=== PATIENT | male | born 1965 | race Hispanic/Latino ===

== ENCOUNTER 2021-05-08 11:40 | Day surgery (SDC) | payer BC ==
[2021-05-07 12:39] LABS: BASOPHILS % (AUTO) 0.8 % (0.0-5.0); EOSINOPHILS % (AUTO) 4.6 % (0.0-8.0); HEMATOCRIT 44.8 % (42-54); LYMPHOCYTES % (AUTO) 20.5 % (21.0-51.0); MEAN CORPUSCULAR HEMOGLOBIN 30.1 pg (27.0-33.0); MEAN CORPUSCULAR HGB CONC 32.8 g/dL (32.0-36.0); MEAN CORPUSCULAR VOLUME 91.8 fL (79-99); MONOCYTES % (AUTO) 10.6 % (3.0-13.0); NEUTROPHILS % (AUTO) 63.1 % (40.0-77.0); PLATELET COUNT (AUTO) 259 K/uL (130-400); RED BLOOD CELL COUNT(AUTO) 4.88 MIL/uL (4.50-6.20); WHITE BLOOD COUNT (AUTO) 9.7 K/uL (4.8-10.8)
[2021-05-07 12:42] LABS: APPEARANCE,URINE Clear (CLEAR); BILIRUBIN,URINE Negative (NEGATIVE); COLOR,URINE Yellow (YELLOW); GLUCOSE, URINE (UA) Negative (NEGATIVE); KETONES,URINE Negative (NEGATIVE); LEUKOCYTE ESTERASE ,URINE Negative (NEGATIVE); NITRATE,URINE Negative (NEGATIVE); OCCULT BLOOD,URINE Negative (NEGATIVE); PH,URINE 5.5 (5.0-8.0); PROTEIN,URINE Negative (NEGATIVE)
[2021-05-07 12:50] LABS: POTASSIUM 4.7 mmol/L (3.5-5.1)
[2021-05-07 12:54] LABS: PROTHROMBIN TIME 10.9 SEC (9.6-11.6)
[2021-05-07 12:56] LABS: PARTIAL THROMBOPLASTIN TIME 30.5 SEC (26.3-35.5)
[2021-05-07 13:56] VITALS: BP 141/82
[~2021-05-08] VITALS: Ht 175.3 cm; Wt 113.8 kg
[2021-05-08] VITALS (13 sets, daily range): BP systolic 110–129; BP diastolic 57–80
[~2021-05-08 11:40] MED LIST: FAMO40TA7 PO; LISI30TA4 PO; NITR0.4T50 SL; OMEP-420 PO; ROSU5TAB12 PO
[2021-05-08] MEDS ORDERED: 0.9%NACL 1000ML 1,000 ML IV ONE (12:49)
[2021-05-08] MEDS ORDERED: HEPARIN 10,000 UNIT/10ML (1,000 UNIT/ML) VIAL ONE (13:52)
[2021-05-08] MEDS ORDERED: NITROGLYCERIN 2 MG VIAL IV ONE (13:52)
[2021-05-08] MEDS ORDERED: IOHEXOL 350 MG/ML 100ML INFUS..BTL IV ONE (13:52)
[2021-05-08] MEDS ORDERED: IOHEXOL-350 50ML VIAL IV ONE (13:52)
[2021-05-08] MEDS ORDERED: LIDOCAINE HCL 400MG/20ML VIAL ONE (13:53)
[2021-05-08] MEDS ORDERED: MIDAZOLAM HCL 1 MG/ML 2ML VIAL ONE (14:22)
[2021-05-08] MEDS ORDERED: FENTANYL CITRATE PF 50 MCG/1 ML 2ML VIAL ONE (14:58)
[2021-05-08] MEDS ORDERED: DiphenhydrAMINE HCL 50 MG/ML VIAL ONE (14:58)
[2021-05-08] MEDS ORDERED: [UNRECOGNIZED DRUG - OTHER] IV SCH (16:00)
[2021-05-08] MEDS ORDERED: DEXTROSE 50%-WATER 50 ML DISP.SYRIN IV PRN (16:00)
[2021-05-08] MEDS ORDERED: GLUCAGON 1MG KIT 1 MG ML IM PRN (16:00)
[2021-05-08] MEDS: TRAMADOL /APAP 37.5MG/325MG TAB PO PRN ×2 (17:05→20:10)
== END 2021-05-08 22:44 | disposition home or self-care (01) ==
LOC: DAH 11:40
PROVIDERS: ATTEND Student in an Organized Health Care Education/Training Program
DX: I25.119 Atherosclerotic heart disease of native coronary artery with unspecified angina pectoris (principal); I10 Essential (primary) hypertension; E78.5 Hyperlipidemia, unspecified; Z87.891 Personal history of nicotine dependence; Z98.890 Other specified postprocedural states; Z90.49 Acquired absence of other specified parts of digestive tract; Z79.01 Long term (current) use of anticoagulants; Z79.899 Other long term (current) drug therapy
CPT/HCPCS: 36415; 71045; 80048; 81003; 85025; 85610; 85730; 93005; 93458; A4215; A4216; A4221; A4222; A4223 ×3; A4606; A4663; C1760; C1894 ×2; J1200; J1644; J2250; J3010; J3490 ×2; J7030; Q9965 ×2; Q9967; 99156; 99157